=== PATIENT | female | born 1995 | race Caucasian/White ===

== ENCOUNTER 2018-01-01 12:11 | Emergency (ER) | payer OTHER, MEDICAID ==
--- NOTE | 2018-01-01 12:48 | UC ---
Skin Complaint HPI - HPI Summary HPI Summary: Pt presents with red and swollen area to left cheek and left lower leg. Says that she had a pimple on her left cheek yesterday that she tried to pop - woke up this morning and had increased redness and swelling to the area. Also has a red and swollen area to her left lower leg. Denies fever, chills, SOB, chest pain. - History of Current Complaint Chief Complaint: UCSkin Time Seen by Provider: 01/01/18 12:48 Stated Complaint: SWOLLEN CHECK AND AREA ON LEG Hx Obtained From: Patient Onset/Duration: Sudden Onset Skin Exposure Onset/Duration: Days Ago Onset Severity: Moderate Current Severity: Severe Pain Intensity: 7 Pain Scale Used: 0-10 Numeric - Allergy/Home Medications Allergies/Adverse Reactions: Allergies Allergy/AdvReac Type Severity Reaction Status Date / Time No Known Allergies Allergy Verified 01/01/18 12:23 Home Medications: Home Medications Acetaminophen [APAP] 500 mg PO 01/01/18 [History] Review of Systems Constitutional: Negative Skin: Other - Redness and swelling cheek/leg Respiratory: Negative Cardiovascular: Negative Gastrointestinal: Negative Neurovascular: Negative Neurological: Negative Psychological: Negative All Other Systems Reviewed And Are Negative: Yes PMH/Surg Hx/FS Hx/Imm Hx Previously Healthy: Yes Endocrine History: Diabetes - Surgical History Surgical History: Yes Surgery Procedure, Year, and Place: 2 c-sections, kidney stent - Family History Known Family History: Positive: Diabetes - Social History Lives: With Family Alcohol Use: None Substance Use Type: None Smoking Status (MU): Never Smoked Tobacco Physical Exam - Summary Physical Exam Summary: GENERAL: NAD. WDWN. No pain distress. SKIN: Left cheek: 5mm area of mild erythema and with surrounding edema and mild induration. TTP. No drainage/bleeding or streaking. Left lateral lower lemm area of mild erythema and TTP. No edema, induration, drainage, or bleeding. NECK: Supple. Nontender. No lymphadenopathy. CHEST: CTAB. No r/r/w. No accessory muscle use. Breathing comfortably and in no distress. CV: RRR. Without m/r/g. Pulses intact. Brisk cap refill. NEURO: Alert. CN II-XII grossly intact. PSYCH: Age appropriate behavior. Triage Information Reviewed: Yes Vital Signs: Initial Vital Signs Temp 98.6 F 01/01/18 12:20 Pulse 97 01/01/18 12:20 Resp 18 01/01/18 12:20 BP 108/73 01/01/18 12:20 Pulse Ox 98 01/01/18 12:20 Course/Dx - Course Course Of Treatment: Skin abscess left cheek. Folliculitis left lower leg. Given that the abscess is only mildly indurated, located on her face, and is rather small - will try po antibiotic over I&D at this time. - Diagnoses Provider Diagnoses: Skin abscess left face. Folliculitis left lower leg Discharge - Sign-Out/Discharge Documenting (check all that apply): Discharge/Admit/Transfer - Discharge Plan Condition: Stable Disposition: HOME Prescriptions: Amoxicillin/Clavulanate TAB* [Augmentin TAB 875*] 875 mg PO BID #20 tab Patient Education Materials: Abscess (ED) Referrals: No Primary Care Phys,NOPCP [Primary Care Provider] - Additional Instructions: If you develop a fever, shortness of breath, chest pain, new or worsening symptoms - please call your PCP or go to the ED. 1) Please apply warm compresses to the areas of skin infection 2) If you notice these area start to increased in swelling or come to a head - please return to have them drained. - Billing Disposition and Condition Condition: STABLE Disposition: HOME
== END 2018-01-01 13:00 | disposition home or self-care (01) ==
LOC: UCEAST 12:11
DX: L02.01 Cutaneous abscess of face (principal); L73.9 Follicular disorder, unspecified; E11.9 Type 2 diabetes mellitus without complications; Z79.4 Long term (current) use of insulin
CPT/HCPCS: 99212; G0463

== ENCOUNTER 2018-01-06 15:03 | Emergency (ER) | payer OTHER, MEDICAID ==
--- NOTE | 2018-01-06 15:25 | UC ---
Eye Complaint HPI - HPI Summary HPI Summary: Pt presents with left eye redness, drainage, and itchiness for 2 days. Her son recently had pink eye and she thinks she has it now. Denies fever, chills, vision changes, or FB in eye. She does not wear glasses or contacts - History of Current Complaint Chief Complaint: UCEye Stated Complaint: EYE COMPLAINT Time Seen by Provider: 01/06/18 15:25 Hx Obtained From: Patient Hx Last Menstrual Period: 12/25/2017 Onset/Duration: Sudden Onset Severity Currently: None Pain Intensity: 0 - Allergies/Home Medications Allergies/Adverse Reactions: Allergies Allergy/AdvReac Type Severity Reaction Status Date / Time No Known Allergies Allergy Verified 01/01/18 12:23 Home Medications: Home Medications Ibuprofen [Advil] 01/06/18 [History] PMH/Surg Hx/FS Hx/Imm Hx Endocrine History: Diabetes - Surgical History Surgical History: Yes Surgery Procedure, Year, and Place: 2 c-sections, kidney stent - Family History Known Family History: Positive: Diabetes - Social History Occupation: Unemployed Lives: With Family Alcohol Use: None Substance Use Type: None Smoking Status (MU): Never Smoked Tobacco Review of Systems Constitutional: Negative Skin: Negative Eyes: Drainage, Eye Redness ENT: Negative Respiratory: Negative Cardiovascular: Negative Gastrointestinal: Negative Neurovascular: Negative Neurological: Negative Psychological: Negative All Other Systems Reviewed And Are Negative: Yes Physical Exam - Summary Physical Exam Summary: GENERAL: NAD. WDWN. No pain distress. SKIN: No rashes or open wounds. HEENT: Head: AT/NC Eyes: EOM intact. PERRLA. Left eye: Conjunctiva with moderate inflammation and erythema. Scleral injection. Moderate clear discharge. Ears: Hearing grossly normal. TMs intact, no bulging, erythema, or edema. Nose: Nasal mucosa pink and moist. NTTP maxillary and frontal sinus. Throat: Posterior oropharynx without exudates, erythema, or tonsillar enlargement. Uvula midline. NECK: Supple. Nontender. No lymphadenopathy. CHEST: No accessory muscle use. Breathing comfortably and in no distress. CV: RRR. Without m/r/g. Pulses intact. Brisk cap refill. NEURO: Alert. CN II-XII grossly intact. PSYCH: Age appropriate behavior. Triage Information Reviewed: Yes Vital Signs: Initial Vital Signs Temp 98.4 F 01/06/18 15:11 Pulse 83 01/06/18 15:11 Resp 16 01/06/18 15:11 BP 110/69 01/06/18 15:11 Pulse Ox 100 01/06/18 15:11 Eye Complaint Course/Dx - Course Course Of Treatment: Left eye conjunctivitis. Rx for cipro eye drops - Differential Dx/Diagnosis Provider Diagnoses: Left eye conjunctivitis Discharge - Sign-Out/Discharge Documenting (check all that apply): Discharge/Admit/Transfer - Discharge Plan Condition: Stable Disposition: HOME Prescriptions: Ciprofloxacin 0.3% OPTH.TYRA* [Cipro 0.3% Opth*] 1 drop LEFT EYE QID #1 btl Patient Education Materials: Conjunctivitis (ED) Referrals: No Primary Care Phys,NOPCP [Primary Care Provider] - Additional Instructions: If you develop a fever, shortness of breath, chest pain, new or worsening symptoms - please call your PCP or go to the ED. - Billing Disposition and Condition Condition: STABLE Disposition: HOME
== END 2018-01-06 15:45 | disposition home or self-care (01) ==
LOC: UCEAST 15:03
DX: H10.32 Unspecified acute conjunctivitis, left eye (principal); E11.8 Type 2 diabetes mellitus with unspecified complications; Z79.4 Long term (current) use of insulin
CPT/HCPCS: 99212; G0463